=== PATIENT | female | born 1965 | race Caucasian/White ===

== ENCOUNTER 2024-06-21 10:08 | Emergency (ER) | payer OTHER ==
[~2024-06-21] VITALS: Ht 149.9 cm; Wt 59.0 kg
[2024-06-21 10:08] VITALS: BP 0/0; PULSE 0; RESP 22; TEMP 93.6; O2SAT 0
[2024-06-21] MEDS ORDERED: EPINEPHrine 1 MG/ML AMP ONE (10:10)
[2024-06-21] MEDS ORDERED: EPINEPHrine PFS 0.1 MG/ML SYR IVP ONE ×3 (10:11→10:13)
== END 2024-06-21 10:20 ==
LOC: EDBD 10:08 → MED 10:08
DX: I46.9 Cardiac arrest, cause unspecified (principal)
CPT/HCPCS: 31500; 92950; 99291; J0171